=== PATIENT | female | born 1940 | race Two or more races ===

== ENCOUNTER 2021-08-24 08:56 | Outpatient (CLI) | payer OTHER | END 2021-08-24 09:07 | disposition home or self-care (01) | LOC: RX STUDY 08:56 | PROVIDERS: ATTEND Internal Medicine Gastroenterology | DX: K21.00 Gastro-esophageal reflux disease with esophagitis, without bleeding (principal); R10.13 Epigastric pain ==

== ENCOUNTER 2022-03-21 13:43 | Outpatient (CLI) | payer OTHER | END 2022-03-21 13:51 | disposition home or self-care (01) | LOC: SONOGRAMA 13:43 | DX: E04.1 Nontoxic single thyroid nodule (principal) ==